=== PATIENT | female | born 1970 | race Caucasian/White ===

== ENCOUNTER 2022-06-27 12:10 | Inpatient (IN) | payer MEDICAID, SELFPAY ==
[2022-06-27 11:44] VITALS: BP 236/132; PULSE 117; RESP 18; TEMP 36.6; O2SAT 98; BMI 32.9
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
[2022-06-27 12:37] LABS: HCG Qualitative Urine. Negative (Negative)
[2022-06-27 12:48] VITALS: BP 149/101; PULSE 105; O2SAT 98
[2022-06-27 13:50] LABS: Basophils # 0.1 10^3/uL (0.0-0.1); Basophils % 0.8 %; Eosinophils # 0.2 10^3/uL (0.0-0.8); Eosinophils % 2.2 %; Hematocrit 42.4 % (37.0-47.0); Hemoglobin 13.7 g/dL (11.5-15.3); Lymphocytes # 2.5 10^3/uL (0.8-4.8); Lymphocytes % 25.9 %; Mean Corpuscular HGB Conc 32.3 g/dL (30.0-36.0); Mean Corpuscular Hemoglobin 28.7 pg (28.0-34.0); Mean Corpuscular Volume 88.7 fl (81-99); Mean Platelet Volume 11.4 fL (7.4-10.4); Monocytes # 0.7 10^3/uL (0.2-0.9); Monocytes % 6.6 %; Neutrophils # 6.25 10^3/uL (1.8-7.7); Nucleated Red Blood Cells % 0 %; Platelet Count 302 10^3/cmm (130-400); Red Blood Count 4.78 10^6/uL (4.1-5.3); Red Cell Distribution Width 14.3 % (12.1-15.1); White Blood Count 9.8 10^3/uL (4.0-10.0)
[2022-06-27 13:50] LABS: Add Urine Microscopic? YES; Bilirubin Urine Neg (Negative); Blood Urine Neg (Negative); Glucose Urine UA Norm (Normal); Ketones Urine Negative (Negative); Leukocyte Esterase Urine 1+ (Negative); Nitrate Urine Negative (Negative); Protein Urine Neg (Negative); Specific Gravity, Urine 1.025 (1.005-1.030); Urine Appearance Hazy (CLEAR); Urine Color Yellow (Yellow); Urobilinogen Urine Norm (Negative); pH Urine 5 (5-7)
[2022-06-27 13:53] LABS: Amphetamines Screen Urine Negative (Negative); Barbiturates Screen Urine Negative (Negative); Benzodiazepines Screen Urine Negative (Negative); Cocaine Screen Urine Negative (Negative); Opiate Screen Urine Negative (Negative); PCP Screen Urine Negative (Negative); THC Screen Urine Negative (Negative)
[2022-06-27 14:06] LABS: Add Urine Culture? No; Bacteria Urine TRACE /hpf; RBC Urine 0-4 /hpf (0-2); Squamous Epithelial Cell Urine 0-4 /hpf (0-5); WBC Urine 0-4 /hpf (0-5)
[2022-06-27 14:21] LABS: Alanine Aminotransferase 21 U/L (0-33); Albumin Level 4.5 g/dL (3.5-5.2); Alkaline Phosphatase 93 U/L (35-105); Anion Gap 15.5 (5-19); Aspartate Amino Transferase 16 U/L (0-32); Blood Urea Nitrogen 21 mg/dL (6-20); Calcium 9.7 mg/dL (8.5-10.5); Carbon Dioxide 24 mmol/L (22-29); Chloride 102 mmol/L (98-107); Globulin 2.7 g/dL (1.3-4.6); Glomerular Filtration Rate 88.6 mL/min (90-130); Glucose 96 mg/dL (65-115); Osmolality Calculated 287 mOsm/kg (285-295); Potassium 4.5 mmol/L (3.5-5.1); Sodium 137 mmol/L (136-145); Total Bilirubin 0.2 mg/dL (0.15-1.2); Total Protein 7.2 g/dL (6.6-8.7)
[2022-06-27 14:27] LABS: Acetaminophen < 5.0 ug/mL (10-30); Alcohol Level < 10 mg/dL (0-10); Salicylate < 0.3 mg/dL (3-10)
[2022-06-27 18:20] LABS: Adenovirus Not Detected (NOT DETECT); Chlamydia Pneumoniae Not Detected (NOT DETECT); Coronavirus 229E,HKU1,NL63,OC4 Not Detected (NOT DETECT); Human Metapneumovirus Not Detected (NOT DETECT); Human Rhinovirus/Enterovirus Not Detected (NOT DETECT); Influenza A Not Detected (NOT DETECT); Influenza A H1 Not Detected (NOT DETECT); Influenza A H1-2009 Not Detected (NOT DETECT); Influenza A H3 Not Detected (NOT DETECT); Influenza B Not Detected (NOT DETECT); Mycoplasma Pneumoniae Not Detected (NOT DETECT); Parainfluenza Virus Type 1 Not Detected (NOT DETECT); Parainfluenza Virus Type 2 Not Detected (NOT DETECT); Parainfluenza Virus Type 3 Not Detected (NOT DETECT); Parainfluenza Virus Type 4 Not Detected (NOT DETECT); Respiratory Syncytial Virus A Not Detected (NOT DETECT); Respiratory Syncytial Virus B Not Detected (NOT DETECT); SARS-COV-2 Not Detected (NOT DETECT)
--- NOTE | 2022-06-28 08:51 | PC.NURSE ---
Current vitals 139/93 95 95% 18 Competed assessment, no acute distress, talkative. C/O low abd cramping. Informed Dr Magallon no orders given.
[2022-06-28 14:41] VITALS: BP 133/94; PULSE 96; RESP 18; TEMP 36.9; O2SAT 94
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
[2022-06-28 19:51] VITALS: BP 129/91; PULSE 106; RESP 17; TEMP 36.9; O2SAT 96
[2022-06-29 06:00] VITALS: BP 148/80; PULSE 77; RESP 16; O2SAT 98
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
[2022-06-29 14:00] VITALS: BP 130/81; PULSE 78; RESP 19; TEMP 36.7; O2SAT 98
[2022-06-29 20:24] VITALS: BP 138/92; PULSE 79; RESP 18; TEMP 36.8; O2SAT 95
[2022-06-29 21:46] LABS: Bilirubin Urine Neg (Negative); Blood Urine Neg (Negative); Glucose Urine UA Norm (Normal); Ketones Urine Negative (Negative); Leukocyte Esterase Urine 1+ (Negative); Nitrate Urine Negative (Negative); Protein Urine Neg (Negative); RBC Urine 0-4 /hpf (0-2); Specific Gravity, Urine 1.005 (1.005-1.030); Urine Appearance Clear (CLEAR); Urine Color Straw (Yellow); Urobilinogen Urine Neg (Negative); pH Urine 6 (5-7)
[2022-06-29 21:47] LABS: Add Urine Culture? No; Bacteria Urine TRACE /hpf; Squamous Epithelial Cell Urine 0-4 /hpf (0-5)
[2022-06-30 06:00] VITALS: BP 124/87; PULSE 81; RESP 16; TEMP 36.4; O2SAT 94
--- NOTE | 2022-06-30 07:46 | P.NPUPN_ITS ---
Subjective NPU Subjective: Patient returns today reporting that this is just a misunderstanding. I advised her that her daughter had filled out an affidavit which she found surprising. We also discussed the need to contact her significant other to get his version of whether or not he did say she has been stalking him. We discussed that without collateral information from him or her daughter concerns exist about her behaviors and possible psychosis although she has not appeared to be having delusions or psychosis. We discussed that the treatment team would be available to attempt to vet her version of the story. Mental Status Exam MSE Comments: This is an overweight versus obese white woman in hospital scrubs with limited grooming but appropriate eye contact. No abnormal movements. Cooperative with exam in mild distress. Speech was slightly decreased volume and normal rate. Mood described as good, affect is congruent. Thought process, frustrated. Thought content: patient denies suicidal or homicidal ideation, no delusions reported or noted and denies any auditory or visual hallucinations. Attention and concentration are intact and memory appeared reliable but none were formally tested. She is alert and oriented times three. Insight and judgment are fair. Impulse control appears fair. Vitals/I&O/Wt Last Vital Signs Temp 98.2 F 06/29/22 20:24 Pulse 79 06/29/22 20:24 Resp 18 06/29/22 20:24 BP 138/92 06/29/22 20:24 Pulse Ox 95 06/29/22 20:24 O2 Del Method 06/28/22 14:41 Weight last 48 hrs Weight 84.005 kg Data NPU : 06/27/22 13:22 06/27/22 13:22 A&P Assessment and plan (1) Acute psychosis: (2) PTSD (post-traumatic stress disorder): (3) Family relationship problem: Plan This is a 51 year old white woman with significant history of trauma, post traumatic stress disorder and genetic loading for mental health and addiction issues who presents due to an affidavit from her sister reporting she is doing well overall despite her continuing symptoms of PTSD and that her relationship with her partner is being questioned due to her family?s prejudice. 1. Continue current medications 2. Encourage individual, group and milieu therapy 3. Continue q-15 minute check for safety 4. Attempt to get collateral information about her presentation. 5. She apparently does not need a 96-hour hold as her sister is her guardian. Involuntary Hold Information 96 Hour Hold: 96 Hour Involuntary Admission: Yes 96 Hour Hold Ending Date: 07/04/22 96 Hour Hold Ending Time: 14:10 Attestations NPU Medical Necessity Statement*: Inpatient hospitalization is medically necessary and the clinically appropriate intervention at this time. We will monitor medi cations and make changes as indicated. Likely length of stay is 3-5 days. Coding Level of Care Code Acute Oceanologist for Delmisg Fwd Diagnoses Acute psychosis F23 PTSD (post-traumatic stress disorder) F43.10 Family relationship problem Z63.9
[2022-06-30 13:32] VITALS: BP 133/89; PULSE 90; RESP 18; TEMP 36.6; O2SAT 96
[2022-06-30 21:01] VITALS: BP 134/84; PULSE 87; RESP 14; TEMP 36.6; O2SAT 96
[2022-06-30 22:00] VITALS: BP 134/84; PULSE 87; RESP 14; TEMP 36.6; O2SAT 96
[2022-07-01 06:00] VITALS: BP 102/68; PULSE 76; RESP 16; TEMP 37; O2SAT 96
--- NOTE | 2022-07-01 08:24 | PC.NURSE ---
patient denies ah/vh and si/hi. Patient is pleasant and cooperative this morning. Patient does state she is having frequent, loose bowel movements and is urinating frequently.
[2022-07-01 14:00] VITALS: BP 121/81; PULSE 91; RESP 20; TEMP 36.4; O2SAT 95
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
[2022-07-01 22:00] VITALS: BP 148/92; PULSE 95; RESP 18; TEMP 37; O2SAT 95
[2022-07-02 06:00] VITALS: BP 126/88; PULSE 69; RESP 16; TEMP 36.3; O2SAT 97
[2022-07-02 14:00] VITALS: BP 120/86; PULSE 107; RESP 15; TEMP 36.8; O2SAT 96
--- NOTE | 2022-07-02 17:00 | W.PM.NPUPNS ---
Subjective NPU Subjective: Patient was seen on rounds this morning. She continues to show no evidence of active psychosis while in the hospital. Patient had been compliant and had again admitted to having a breakdown 2 years ago. She reports no side effects from any medications in the past. She had reported that she did not feel paranoid and was not suspicious of others intentions. Staff notes the patient had been isolative and somewhat guarded on the milieu. She had reported repeated efforts to manage her sister who remains her guardian but states that she has been unable to stop her sister from hospitalizing her. Mental Status Exam MSE Comments: This is an overweight versus obese white woman in hospital scrubs with limited grooming but appropriate eye contact. No abnormal movements. Cooperative with exam in mild distress. Speech was slightly decreased volume and normal rate. Mood described as okay. Her affect was mood incongruent. Thought process was linear and logical. Thought content: patient denies suicidal or homicidal ideation, no delusions reported or noted and denies any auditory or visual hallucinations. Attention and concentration are intact and memory appeared reliable but none were formally tested. She is alert and oriented times three. Insight and judgment are fair. Impulse control appears fair. Vitals/I&O/Wt Last Vital Signs Temp 97.4 F L 07/02/22 06:00 Pulse 69 07/02/22 06:00 Resp 16 07/02/22 06:00 BP 126/88 07/02/22 06:00 Pulse Ox 97 07/02/22 06:00 O2 Del Method 07/02/22 06:00 Data NPU : 06/27/22 13:22 06/27/22 13:22 A&P Assessment and plan (1) Acute psychosis: (2) PTSD (post-traumatic stress disorder): (3) Family relationship problem: Plan This is a 51 year old white woman with significant history of trauma, post traumatic stress disorder and genetic loading for mental health and addiction issues who presents due to an affidavit from her sister reporting she is doing well overall despite her continuing symptoms of PTSD and that her relationship with her partner is being questioned due to her family?s prejudice. 1. Continue current medications 2. Encourage individual, group and milieu therapy 3. Continue q-15 minute check for safety 4. Attempt to get collateral information about her presentation. She does not appear overtly psychotic at this time. Involuntary Hold Information 96 Hour Hold: 96 Hour Involuntary Admission: Yes 96 Hour Hold Ending Date: 07/04/22 96 Hour Hold Ending Time: 14:10 Attestations NPU Medical Necessity Statement*: Inpatient hospitalization is medically necessary and the clinically appropriate intervention at this time. We will monitor medications and make changes as indicated. Likely length of stay is 3-5 days. Coding Level of Care Code Established Pt Acute Paper Bag Inspector for Chg Fwd Patient Type Established History Problem Focused Exam Problem Focused Medical Decision Making Straight Forward Diagnoses Acute psychosis F23 PTSD (post-traumatic stress disorder) F43.10 Family relationship problem Z63.9
[2022-07-02 19:48] VITALS: BP 162/95; PULSE 103; RESP 18; TEMP 36.6; O2SAT 96
[2022-07-03 05:59] VITALS: BP 144/90; PULSE 73; RESP 18; TEMP 36.4; O2SAT 97
[2022-07-03 14:00] VITALS: BP 127/86; PULSE 87; RESP 18; O2SAT 96
--- NOTE | 2022-07-03 18:30 | W.PM.NPUPNS ---
Subjective NPU Subjective: Patient was seen on rounds this morning. The patient denies any auditory or visual hallucinations. She reports that she has been concerned that her guardian will pick her up from her home again and have her hospitalized and given an intramuscular injection for treating psychosis. She had admitted to a past history of psychosis and depression 2 years ago but reports that she has been engaging in adequate care for herself. She reported no thoughts of hurting herself or others. She had continued to remain quiet but cooperative on the milieu. She had been eating adequately and engaging in self-care. She had indicated that she had felt that she would have laura that her medical care was something that only she had God would discuss. She reports that she engages in prayer to make decisions but states that she would never deny herself medical care if her life was in immediate danger. Mental Status Exam MSE Comments: This is an overweight versus obese white woman in hospital scrubs with limited grooming but appropriate eye contact. No abnormal movements. Cooperative with exam in mild distress. Speech was slightly decreased volume and normal rate. Mood described as stressed Her affect was mood congruent and anxious. Thought process was linear and logical. Thought content: patient denies suicidal or homicidal ideation, no delusions reported or noted and denies any auditory or visual hallucinations. Attention and concentration are intact and memory appeared reliable but none were formally tested. She is alert and oriented times three. Insight and judgment are fair. Impulse control appears fair. Vitals/I&O/Wt Last Vital Signs Temp 97.6 F 07/03/22 05:59 Pulse 87 07/03/22 14:00 Resp 18 07/03/22 14:00 BP 127/86 07/03/22 14:00 Pulse Ox 96 07/03/22 14:00 O2 Del Method 07/02/22 06:00 Data NPU : 06/27/22 13:22 06/27/22 13:22 A&P Assessment and plan (1) Acute psychosis: (2) PTSD (post-traumatic stress disorder): (3) Family relationship problem: Plan This is a 51 year old white woman with significant history of trauma, post traumatic stress disorder and genetic loading for mental health and addiction issues who presents due to an affidavit from her sister reporting she is doing well overall despite her continuing symptoms of PTSD and that her relationship with her partner is being questioned due to her family?s prejudice. 1. Continue current medications 2. Encourage individual, group and milieu therapy 3. Continue q-15 minute check for safety 4. Attempt to get collateral information about her presentation. She does not appear overtly psychotic at this time. I will request an occupational therapy evaluation tommorow prior to discharge to determine if there is any barriers to her living independently. Involuntary Hold Information 96 Hour Hold: 96 Hour Involuntary Admission: Yes 96 Hour Hold Ending Date: 07/04/22 96 Hour Hold Ending Time: 14:10 Attestations NPU Medical Necessity Statement*: Inpatient hospitalization is medically necessary and the clinically appropriate intervention at this time. We will monitor medications and make changes as indicated. Likely length of stay is 2-3 days. 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
[2022-07-03] MEDS: acetaminophen 325 mg Tablet 650 MG PO (20:13)
--- NOTE | 2022-07-03 20:47 | PM.CONSULT ---
Providers/Reason For Consult Consulting Physician/Specialty*: Hospitalist Reason for Consult*: Urinary burning, urgency, frequency Attending Physician: Lisandro Haley MD Primary Care Provider: PETER Grande History of Present Illness History of Present Illness Pleasant 51-year-old lady has been having several days of symptoms of what she feels is a urinary tract infection, with burning with urination, suprapubic cramping, which feels like prior symptoms she had had with UTI. She reports also has had some soft diarrhea, today had 3-4 bowel movements. Noted small amount of blood with the stool. Review of Systems Const: Denies: fever(s), chills, body aches or malaise Eyes: Denies: change in vision, eye discomfort or eye redness ENMT: Denies: throat pain, oral sores or ear or mastoid pain Card: Denies: chest pain, edema, pre-syncope or dyspnea on exertion Resp: Denies: dyspnea, productive cough, change in phlegm color or hemoptysis GI: Reports: diarrhea; Denies: abdominal pain, nausea, vomiting, constipation, hematochezia or melena : Reports: urinary frequency; Denies: flank pain or hematuria Musc: Denies: back pain, joint swelling or joint redness Skin/Breast: Denies: rash or new lesions Neuro: Denies: headache(s), numbness in extremities, weakness in extremities, dizziness, confusion or seizure-like activity Endo: Denies: polyuria or polydipsia Bryan/Lymph: Denies: easy bleeding or tender lymph nodes All/Imm: Denies: urticaria or tongue swelling Medications/Allergies Home Medications Medication Instructions Recorded Confirmed Last Taken Type No Known Home Medications 06/27/22 06/27/22 Unknown History Allergies Allergy/AdvReac Type Severity Reaction Status Date / Time amitriptyline Allergy Unknown Unknown Verified 06/27/22 12:39 cephalexin [From Keflex] Allergy Unknown Unknown Verified 06/27/22 12:39 ciprofloxacin [From Cipro] Allergy Unknown Unknown Verified 06/27/22 12:39 clonazepam Allergy Unknown Unknown Verified 06/27/22 12:39 codeine Allergy Unknown Unknown Verified 06/27/22 12:39 hydroxyzine Allergy Unknown Unknown Verified 06/27/22 12:39 metronidazole Allergy Unknown Unknown Verified 06/27/22 12:39 nitrofurantoin Allergy Unknown Unknown Verified 06/27/22 12:39 [From Macrobid] paroxetine [From Paxil] Allergy Unknown Unknown Verified 06/27/22 12:39 promethazine [From Phenergan] Allergy Unknown Unknown Verified 06/27/22 12:39 Sulfa (Sulfonamide Allergy Unknown Unknown Verified 06/27/22 12:39 Antibiotics) sulfamethoxazole Allergy Unknown Unknown Verified 06/27/22 12:39 [From Bactrim] trazodone Allergy Unknown Unknown Verified 06/27/22 12:39 trimethoprim [From Bactrim] Allergy Unknown Unknown Verified 06/27/22 12:39 Current Medications Generic Name Dose Route Start Last Admin Trade Name Freq PRN Reason Stop Dose Admin Acetaminophen 650 mg 06/28/22 14:41 07/03/22 20:13 Acetaminophen 325 Mg Tablet PO 650 mg Q4H PRN Administration MILD PAIN PFSH Acute PFSH: Medical History Pyuria Retained ureteral stent Ureteral calculus Surgical History History of appendectomy History of breast augmentation History of cholecystectomy History of endometrial ablation History of hernia repair History of hysterectomy History of lithotripsy History of rhinoplasty Family History Mother Cancer Colon cancer Father Arthritis Glaucoma Social History (Updated 07/03/22 @ 20:50 by Balbir Zhou MD) Smoking and tobacco status: former smoker Alcohol intake: never Substance/Drug Use: never Female Reproductive History: Date of last menstrual period: 06/28/02 Vitals/I&O/Wt Last Vital Signs Temp 97.6 F 07/03/22 05:59 Pulse 87 07/03/22 14:00 Resp 18 07/03/22 14:00 BP 127/86 07/03/22 14:00 Pulse Ox 96 07/03/22 14:00 O2 Del Method 07/02/22 06:00 Physical Exam Const: COMMON NORMALS: patient oriented x3 and alert GENERAL APPEARANCE: cooperative ORIENTATION/CONSCIOUSNESS: Yes awake HENMT: COMMON NORMALS: oropharynx normal Neck/C-Spine: COMMON NORMALS: no JVD Resp: COMMON NORMALS: normal respiratory effort and clear to auscultation bilaterally AUSCULTATION: clear to auscultation bilaterally Cardio: COMMON NORMALS: no JVD, regular rhythm, S1 normal heart sound present, S2 normal heart sound present and No murmurs present (Cardio) RHYTHM: regular rhythm HEART SOUNDS: S1 normal heart sound present and S2 normal heart sound present GI: COMMON NORMALS: Normal to inspection, nondistended, normoactive bowel sounds present, Soft to palpation and non-tender PALPATION: Yes Soft to palpation Extremity: COMMON NORMALS: no joint enlargement and no pedal edema Neuro: COMMON NORMALS: patient oriented x3 and moves all extremities SENSORIUM/ORIENTATION: Yes alert Skin: COMMON NORMALS: no rashes or lesions noted GENERAL SKIN EXAM: no rashes or lesions noted Data : 06/27/22 13:22 06/27/22 13:22 A&P Assessment and plan (1) Urinary tract infection symptoms: Possible UTI with urinary symptoms. UA was obtained on 06/29. With 5-10 WBCs, positive leukocyte esterase. Negative nitrate. I do not see that it reflexed to culture. She continues to have symptoms. UA repeated. She does have listed allergies to a number of antibiotics. She does not exactly remember her reactions, similar name been a rash. She states the only ones that she truly cannot have already so far antibiotics. Discussed with her consideration of trying cefdinir to which she is agreeable. She will let us know in case she is having any symptoms. (2) Diarrhea: Obtain stool studies. (3) Acute psychosis: Continue neuropsychiatric care. (4) PTSD (post-traumatic stress disorder): (5) Family relationship problem: Consult Attestations Medical Necessity Statement: Continue admission for new psychiatric care. Coding Level of Care Code Acute Dialysis Technician for [facility] [place] Diagnoses Urinary tract infection symptoms R39.9 Diarrhea R19.7 Acute psychosis F23 PTSD (post-traumatic stress disorder) F43.10 Family relationship problem Z63.9
[2022-07-03] MEDS: cefdinir 300 MG CAPSULE PO (21:21)
[2022-07-03 22:00] VITALS: BP 152/100; PULSE 94; RESP 18; TEMP 36.6; O2SAT 97
[2022-07-03 23:15] LABS: Urine Appearance Clear (CLEAR); Urine Color Colorless (Yellow); pH Urine 7 (5-7)
[2022-07-03 23:16] LABS: Add Urine Culture? No; Amorphous Sediment Urine TRACE /hpf; Bilirubin Urine Neg (Negative); Blood Urine Neg (Negative); Glucose Urine UA Norm (Normal); Ketones Urine Negative (Negative); Leukocyte Esterase Urine Negative (Negative); Nitrate Urine Negative (Negative); Protein Urine Neg (Negative); Urobilinogen Urine Norm (Negative)
[2022-07-04 06:00] VITALS: BP 143/87; PULSE 80; RESP 18; TEMP 36.6; O2SAT 97
[2022-07-04] MEDS: cefdinir 300 MG CAPSULE PO ×2 (08:37→18:15)
[2022-07-04 14:00] VITALS: BP 144/85; PULSE 102; RESP 17; TEMP 36.6; O2SAT 96
--- NOTE | 2022-07-04 20:30 | W.PM.NPUPNS ---
Subjective NPU Subjective: Patient was seen on rounds this morning. Continue to struggle report that she did not have any supports at home but despite this she was able to manage her home well. She reports living with her daughter and states that her daughter had been upset by the allegations of the patient's guardian regarding the patient. The patient had been compliant on the milieu. She had been supportive and attended groups without any issue. She had completed the [place] testing through occupational therapy today. This was done to assess her ability to live independently. She had reported adequate sleep. She continued to report worry about being forced to take medication against her will. Mental Status Exam MSE Comments: This is an overweight versus obese white woman in hospital scrubs with limited grooming but appropriate eye contact. No abnormal movements. Cooperative with exam in mild distress. Speech was slightly decreased volume and normal rate. Mood described as okay. Her affect was somewhat restricted in range. Thought process was linear and logical. Thought content: patient denies suicidal or homicidal ideation, no delusions reported or noted and denies any auditory or visual hallucinations. Attention and concentration are intact and memory appeared reliable but none were formally tested. She is alert and oriented times three. Insight and judgment are fair. Impulse control appears fair. Vitals/I&O/Wt Last Vital Signs Temp 97.8 F 07/04/22 14:00 Pulse 102 H 07/04/22 14:00 Resp 17 07/04/22 14:00 BP 144/85 07/04/22 14:00 Pulse Ox 96 07/04/22 14:00 O2 Del Method 07/04/22 06:00 O2 Flow Rate 97 07/03/22 22:00 Data NPU : 06/27/22 13:22 06/27/22 13:22 A&P Assessment and plan (1) Acute psychosis: (2) PTSD (post-traumatic stress disorder): (3) Family relationship problem: Plan This is a 51 year old white woman with significant history of trauma, post traumatic stress disorder and genetic loading for mental health and addiction issues who presents due to an affidavit from her sister reporting she is doing well overall despite her continuing symptoms of PTSD and that her relationship with her partner is being questioned due to her family?s prejudice. 1. Continue current medications 2. Encourage individual, group and milieu therapy 3. Continue q-15 minute check for safety 4. Attempt to get collateral information about her presentation. She does not appear overtly psychotic at this time. Libby testing completed, patient appeared to perform well on this test. Involuntary Hold Information 96 Hour Hold: 96 Hour Involuntary Admission: Yes 96 Hour Hold Ending Date: 07/04/22 96 Hour Hold Ending Time: 14:10 Attestations NPU Medical Necessity Statement*: Inpatient hospitalization is medically necessary and the clinically appropriate intervention at this time. We will monitor medications and make changes as indicated. Likely length of stay is 2-3 days. Coding Level of Care Code Established Pt Acute Substance Abuse Clinician for [facility] Patient Type Established History Problem Focused Exam Problem Focused Medical Decision Making Straight Forward Diagnoses Acute psychosis F23 PTSD (post-traumatic stress disorder) F43.10 Family relationship problem Z63.9
[2022-07-05 06:00] VITALS: BP 137/87; PULSE 89; RESP 16; TEMP 36.8; O2SAT 98
--- NOTE | 2022-07-05 08:15 | P.PN_ITS ---
Subjective Subjective: Patient was seen and examined today, currently she is saying that the burning sensation while passing urine has mostly resolved, urinary frequency is also slowing down. Denies any other complaint.Diarrhea has resolved. Medications: Medication Review Details: Generic Name Dose Route Start Last Admin Trade Name Aldo PRN Reason Stop Dose Admin Acetaminophen 650 mg 06/28/22 14:41 07/03/22 20:13 Acetaminophen 32 5 Mg Tablet PO 650 mg Q4H PRN Administration MILD PAIN Cefdinir 300 mg 07/03/22 20:55 07/04/22 18:15 Cefdinir 300 Mg Capsule PO 300 mg BID FEDE Administration Protocol Vitals/I&O/Wt Last Vital Signs Temp 98.3 F 07/05/22 06:00 Pulse 89 07/05/22 06:00 Resp 16 07/05/22 06:00 BP 137/87 07/05/22 06:00 Pulse Ox 98 07/05/22 06:00 O2 Del Method 07/05/22 06:00 O2 Flow Rate 97 07/05/22 06:00 Physical Exam Const: COMMON NORMALS: patient oriented x3 Resp: COMMON NORMALS: normal respiratory effort, No retractions, No use of accessory muscles and clear to auscultation bilaterally EFFORT & INSPECTION: Yes symmetric chest movement AUSCULTATION: clear to auscultation bilaterally Cardio: COMMON NORMALS: regular rate, regular rhythm, S1 normal heart sound present, S2 normal heart sound present, No gallops present (Cardio), No murmurs present (Cardio), No rub (Cardio) and Peripheral pulses 2+ throughout RATE: regular rate RHYTHM: regular rhythm HEART SOUNDS: S1 normal heart sound present and S2 normal heart sound present PERIPHERAL PULSES: Peripheral pulses 2+ throughout GI: COMMON NORMALS: Normal to inspection, nondistended, normoactive bowel sounds present, Soft to palpation, non-tender, No hepatosplenomegaly present and no masses AUSCULTATION: Yes normoactive bowel sounds PALPATION: Yes Soft to palpation and Yes No hepatosplenomegaly present RECTAL EXAM: deferred Extremity: COMMON NORMALS: no clubbing, cyanosis or edema and no pedal edema Neuro: COMMON NORMALS: patient oriented x3 Data : 06/27/22 13:22 06/27/22 13:22 A&P Assessment and plan (1) Urinary tract infection symptoms: Repeat urine culture done on 07/03 : Is clean: No urine culture Continue cefdinir p.o. for 5 days to complete antibiotic course. Has not reported any drug reaction to Cefdinir. (2) Diarrhea: Obtain stool studies. (3) Acute psychosis: Continue neuropsychiatric care. (4) PTSD (post-traumatic stress disorder): (5) Family relationship problem: Plan Currently in medicine will sign off. Call us with further question. 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
[2022-07-05] MEDS: cefdinir 300 MG CAPSULE PO ×2 (08:32→16:58)
[2022-07-05 14:00] VITALS: BP 175/105; PULSE 100; RESP 20; TEMP 36.7; O2SAT 97
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
[2022-07-05 16:36] VITALS: BP 175/105; PULSE 100; RESP 20; TEMP 36.7; O2SAT 97
[2022-07-05] MEDS: acetaminophen 325 mg Tablet 650 MG PO (18:04)
== END 2022-07-05 18:32 | disposition home or self-care (01) | DRG 885 ==
LOC: ER 06-28 06:06 → ER IP 06-28 08:33 → NP 06-28 12:50
PROVIDERS: Emergency Medicine; Psychiatry & Neurology Psychiatry; Admitting Provider Psychiatry & Neurology Psychiatry; Emergency Provider Family Medicine; PCP Nurse Practitioner Family; Visit Provider Psychiatry & Neurology Psychiatry
DX: F23 Brief psychotic disorder (principal); F43.10 Post-traumatic stress disorder, unspecified; F17.200 Nicotine dependence, unspecified, uncomplicated; Z63.9 Problem related to primary support group, unspecified; R30.0 Dysuria; R19.7 Diarrhea, unspecified; Z87.442 Personal history of urinary calculi
CPT/HCPCS: 36415; 80053; 80306; 80307; 81001; 81025; 85025; 87177; 87209; 87491; 87506; 87591; 87635; 97150; 97165; 99285